=== PATIENT | male | born 1950 | race Caucasian/White ===

== ENCOUNTER → 2022-07-06 | Day surgery (SDC) | payer MEDICARE ==
[~2022-07-06] MED LIST: AMARYL4 MG PO; BUSPAR 10MG10 MG PO; CARDIZEM CD180 MG PO; LISINOPRIL5 MG PO; METFORMIN HCL1000 M1 PO; REVATIO 20 MG T20 MG PO; VAZALORE81 MG PO; XANAX0.25 MG PO
== END | disposition home or self-care (01) ==
LOC: OR 06:37
PROVIDERS: Internal Medicine Pulmonary Disease
PROC: 0B9J8ZX Drainage of Left Lower Lung Lobe, Via Natural or Artificial Opening Endoscopic, Diagnostic (ICD-10-PCS; principal; 2022-07-06 07:30)
DX: R93.89 Abnormal findings on diagnostic imaging of other specified body structures (principal); I10 Essential (primary) hypertension; E11.9 Type 2 diabetes mellitus without complications; J44.9 Chronic obstructive pulmonary disease, unspecified; M19.90 Unspecified osteoarthritis, unspecified site; I25.2 Old myocardial infarction; Z79.82 Long term (current) use of aspirin; Z79.84 Long term (current) use of oral hypoglycemic drugs; Z79.899 Other long term (current) drug therapy; Z87.891 Personal history of nicotine dependence
CPT/HCPCS: 71045; 76000; 82962; 87070; 87205; 87206; 93005; J2704